=== PATIENT | female | born 1960 | race Caucasian/White ===

== ENCOUNTER 2017-12-07 10:42 | Inpatient (IN) | payer MEDICARE, OTHER ==
[~2017-12-07] VITALS: Ht 170.2 cm; Wt 88.9 kg
[2017-12-07] VITALS (20 sets, daily range): BP systolic 87–125; BP diastolic 45–75
[~2017-12-07 10:42] MED LIST: ALBU8.5H8 INH; BISA-155 PO; BUPR1FIL3 SL; CYAN250010 PO; DOCU250C4 PO; ESTROBLEND PO; GABA300C PO; HYDR25TA4 PO; NIA500ERT PO; POLY17PO10 PO; POTA10TA15 PO; acetaminophen 325mg tablet PO ONE; albuterol 2.5 MG/3 ML nebule NEB ONE; ceFAZolin 2gm in dextrose, iso 100 ML IV ONE; celeCOXIB 100mg capsule PO ONE; famotidine 20mg tablet PO ONE; gabapentin 300mg capsule PO ONE; oxyCODONE SR 10mg (sust. release) tab PO ONE; ringers solution, lacted 1,000 ML IV SCH; tranexamic acid inj. 1,000 MG in normal saline 100ml IV soln 90 ML IV ONE
[2017-12-07] MEDS ORDERED: bacitracin inj 150,000 UNIT in sodium chloride irrig. sol 3,000 ML IR ONE (12:15)
[2017-12-07] MEDS ORDERED: ROPIVAcaine 0.5% (5mg/ml) 30ml vial ONE (12:54)
[2017-12-07] MEDS ORDERED: MIDAZolam 1mg/ml 10ml vial ONE (13:16)
[2017-12-07] MEDS ORDERED: fentaNYL/PF 50MCG/1 ML 2ML syringe ONE (13:16)
[2017-12-07] MEDS ORDERED: MORPHINE SULFATE/PF 0.5 MG/ML 10ML AMPUL ONE (13:16)
[2017-12-07] MEDS ORDERED: ringers solution, lacted 1,000 ML IV SCH (14:06)
[2017-12-07] MEDS ORDERED: NALOXONE IV PRN (14:07)
[2017-12-07] MEDS ORDERED: NORMAL SALINE IV PRN (14:07)
[2017-12-07] MEDS ORDERED: diphenhydrAMINE 50 mg/ml inj IV PRN (14:10)
[2017-12-07] MEDS ORDERED: proCHLORperazine 10 MG/2 ml inj IV PRN (14:10)
[2017-12-07] MEDS ORDERED: ondansetron/PF 4mg/2ml inj IV PRN ×3 (14:10→15:20)
[2017-12-07] MEDS ORDERED: meperidine/PF 25mg/ml syringe IV PRN ×3 (14:10)
[2017-12-07] MEDS ORDERED: ceFAZolin 1000mg inj ONE (14:53)
[2017-12-07] MEDS ORDERED: non-formulary drug (Albuterol Sulfate (Proair Hfa) 2 PUFFS) INH SCH (15:15)
[2017-12-07] MEDS ORDERED: propofol inj 20 ML IV ONE (15:18)
[2017-12-07] MEDS ORDERED: bisacodyl 10mg suppository rectal RC PRN (15:20)
[2017-12-07] MEDS ORDERED: magnesium hydroxide 30ml (MOM) UD suspension PO PRN (15:20)
[2017-12-07] MEDS ORDERED: oxyCODONE IR 5mg (immed. release) tablet PO PRN (15:20)
[2017-12-07] MEDS ORDERED: diphenhydrAMINE 25mg capsule PO PRN ×2 (15:20)
[2017-12-07] MEDS ORDERED: acetaminophen 325mg tablet PO PRN (15:20)
[2017-12-07] MEDS ORDERED: albuterol 2.5 MG/3 ML nebule NEB PRN (15:25)
[2017-12-07] MEDS: cefazolin 1gm/NS 100mL 100 ML IV SCH (18:26)
[2017-12-07] MEDS: potassium cl 20mEq in 1/2 NS 1,000 ML IV SCH (18:35)
[2017-12-07] MEDS: oxyCODONE IR 5mg (immed. release) tablet PO PRN ×2 (18:35→22:42)
[2017-12-07] MEDS: gabapentin 300mg capsule PO SCH (18:35)
[2017-12-07] MEDS: buprenorphine/naloxone 8MG-2MG SUBlingual film SL SCH (20:35)
[2017-12-07] MEDS: sennosides 8.6mg tablet PO SCH (20:35)
[2017-12-07] MEDS: HYDROmorphone 1 mg/ml syringe IV PRN (20:35)
[2017-12-07] MEDS: acetaminophen 325mg tablet PO SCH (20:36)
[2017-12-07] MEDS: celeCOXIB 100mg capsule PO SCH (20:36)
[2017-12-07] MEDS: ascorbic acid 500mg tablet PO SCH (20:36)
[2017-12-07] MEDS ORDERED: non-formulary drug (Buprenorphine Hcl/Naloxone Hcl (Suboxone 8 Mg-2 Mg Sl Film) 1 STRIP) SL SCH (21:00)
[2017-12-08] MEDS: gabapentin 300mg capsule PO SCH ×3 (00:21→15:54)
[2017-12-08] MEDS: cefazolin 1gm/NS 100mL 100 ML IV SCH (00:21)
[2017-12-08] MEDS: HYDROmorphone 1 mg/ml syringe IV PRN ×6 (00:23→22:26)
[2017-12-08] MEDS: potassium cl 20mEq in 1/2 NS 1,000 ML IV SCH ×4 (00:31→23:16)
[2017-12-08 02:00] VITALS: BP 109/67
[2017-12-08] MEDS: acetaminophen 325mg tablet PO SCH ×4 (02:11→20:02)
[2017-12-08 06:00] VITALS: BP 110/66
[2017-12-08 06:10] LABS: BASOPHILS % (AUTO) 0.2 % (0-1); EOSINOPHILS # (AUTO) 0.2 X10'3 (0-0.9); EOSINOPHILS % (AUTO) 2.6 % (0-6); HEMATOCRIT 35.2 % (35.0-45.0); HEMOGLOBIN 12.1 g/dl (12.0-16.0); LYMPHOCYTES # (AUTO) 1.4 X10'3 (1.1-4.8); LYMPHOCYTES % (AUTO) 23.5 % (21-51); MEAN CORPUSCULAR HGB CONC 34.5 % (33.0-36.5); MEAN PLATELET VOLUME 7.2 FL (7.4-10.4); MONOCYTES # (AUTO) 0.4 X10'3 (0-0.9); MONOCYTES % (AUTO) 7.2 % (2-12); NEUTROPHILS # (AUTO) 3.9 X10'3 (1.8-7.7); NEUTROPHILS % (AUTO) 66.5 % (42-75); PLATELET COUNT 200 X10'3 (140-440); RED BLOOD COUNT 4.05 X10'6 (4.20-5.60); RED CELL DISTRIBUTION WIDTH 12.9 % (11.5-14.5); WHITE BLOOD COUNT 5.9 X10'3 (4.5-11.0)
[2017-12-08 06:19] LABS: ANION GAP 5 (8-16); CHLORIDE 106 MMOL/L (99-107); POTASSIUM 3.9 MMOL/L (3.5-5.1); SODIUM 139 MMOL/L (135-145); TOTAL CARBON DIOXIDE 27.6 MMOL/L (24-32)
[2017-12-08 06:21] LABS: PROTHROMBIN TIME 10.1 SECONDS (9.0-12.0)
[2017-12-08] MEDS: oxyCODONE IR 5mg (immed. release) tablet PO PRN ×4 (06:45→20:03)
[2017-12-08] MEDS ORDERED: non-formulary drug (Potassium Chloride 1 TAB) PO SCH (08:00)
[2017-12-08] MEDS: buprenorphine/naloxone 8MG-2MG SUBlingual film SL SCH (08:05)
[2017-12-08] MEDS: ascorbic acid 500mg tablet PO SCH ×2 (08:07→20:02)
[2017-12-08] MEDS: multivitamins, therapeutics tablet PO SCH (08:09)
[2017-12-08] MEDS: celeCOXIB 100mg capsule PO SCH ×2 (08:09→20:02)
[2017-12-08] MEDS: potassium chloride 10mEq ER tablet PO SCH (08:09)
[2017-12-08] MEDS: docusate sod 250mg capsule PO SCH (08:10)
[2017-12-08] MEDS: HYDROchlorothiazide 25mg tablet PO SCH (08:10)
[2017-12-08 10:00] VITALS: BP 107/54
[2017-12-08] MEDS ORDERED: warfarin 10mg tablet PO ONE (10:00)
[2017-12-08] MEDS: buprenorphine/naloxone 2-0.5mg sublingual tablet SL SCH ×2 (13:08→22:25)
[2017-12-08 15:00] VITALS: BP 126/70
[2017-12-08 18:00] VITALS: BP 118/64
[2017-12-08 22:00] VITALS: BP 116/57
[2017-12-08] MEDS: sennosides 8.6mg tablet PO SCH (22:26)
[2017-12-09] MEDS: gabapentin 300mg capsule PO SCH ×2 (00:17→08:25)
[2017-12-09] MEDS: oxyCODONE IR 5mg (immed. release) tablet PO PRN ×4 (00:17→13:03)
[2017-12-09 02:00] VITALS: BP 120/64
[2017-12-09] MEDS: acetaminophen 325mg tablet PO SCH ×2 (02:00→08:26)
[2017-12-09 06:28] LABS: BASOPHILS % (AUTO) 0.1 % (0-1); EOSINOPHILS # (AUTO) 0.1 X10'3 (0-0.9); EOSINOPHILS % (AUTO) 2.4 % (0-6); HEMOGLOBIN 11.6 g/dl (12.0-16.0); LYMPHOCYTES # (AUTO) 0.9 X10'3 (1.1-4.8); LYMPHOCYTES % (AUTO) 16.8 % (21-51); MEAN CORPUSCULAR HEMOGLOBIN 29.8 PG (27.0-31.0); MEAN CORPUSCULAR VOLUME 87.4 FL (78-98); MEAN PLATELET VOLUME 7.1 FL (7.4-10.4); MONOCYTES # (AUTO) 0.4 X10'3 (0-0.9); MONOCYTES % (AUTO) 8.3 % (2-12); NEUTROPHILS # (AUTO) 3.8 X10'3 (1.8-7.7); NEUTROPHILS % (AUTO) 72.4 % (42-75); PLATELET COUNT 180 X10'3 (140-440); RED BLOOD COUNT 3.89 X10'6 (4.20-5.60); WHITE BLOOD COUNT 5.3 X10'3 (4.5-11.0)
[2017-12-09 06:36] LABS: INR 1.1 INR; PROTHROMBIN TIME 11.5 SECONDS (9.0-12.0)
[2017-12-09] MEDS: potassium cl 20mEq in 1/2 NS 1,000 ML IV SCH (07:16)
[2017-12-09 07:23] VITALS: BP 116/66
[2017-12-09] MEDS: docusate sod 250mg capsule PO SCH (08:00)
[2017-12-09] MEDS: celeCOXIB 100mg capsule PO SCH (08:25)
[2017-12-09] MEDS: HYDROchlorothiazide 25mg tablet PO SCH (08:26)
[2017-12-09] MEDS: potassium chloride 10mEq ER tablet PO SCH (08:26)
[2017-12-09] MEDS: ascorbic acid 500mg tablet PO SCH (08:26)
[2017-12-09] MEDS: multivitamins, therapeutics tablet PO SCH (08:26)
[2017-12-09] MEDS: buprenorphine/naloxone 2-0.5mg sublingual tablet SL SCH ×2 (08:27→13:15)
[2017-12-09] MEDS: HYDROmorphone 1 mg/ml syringe IV PRN ×2 (08:46→13:02)
[2017-12-09] MEDS ORDERED: warfarin 10mg tablet PO ONE (10:00)
[2017-12-09] MEDS ORDERED: ASPI-1264 PO (10:29)
[2017-12-09] MEDS ORDERED: WALKERFR (10:30)
[2017-12-09 11:50] VITALS: BP 100/59
[2017-12-09] MEDS ORDERED: acetaminophen 325mg tablet PO PRN (15:20)
== END 2017-12-09 13:30 | disposition home or self-care (01) | DRG 470 ==
LOC: PAS IN 11:59 → EDSTATUS 14:00 → ORTHO 4S 16:47
PROVIDERS: ADMIT Specialist; ATTEND Specialist
PROC: 0SRB02Z Replacement of Left Hip Joint with Metal on Polyethylene Synthetic Substitute, Open Approach (ICD-10-PCS; principal; 2017-12-07 13:13)
DX: M16.12 Unilateral primary osteoarthritis, left hip (principal); E66.8 Other obesity; D62 Acute posthemorrhagic anemia; M25.752 Osteophyte, left hip; Q65.89 Other specified congenital deformities of hip; G89.29 Other chronic pain; M54.9 Dorsalgia, unspecified; F41.9 Anxiety disorder, unspecified; I10 Essential (primary) hypertension; F17.210 Nicotine dependence, cigarettes, uncomplicated; Z96.641 Presence of right artificial hip joint; Z98.1 Arthrodesis status; Z79.899 Other long term (current) drug therapy; Z98.891 History of uterine scar from previous surgery; Z68.30 Body mass index [BMI] 30.0-30.9, adult
CPT/HCPCS: 36415; 73502; 80051; 85025; 85610; 86885; 86900; 86901; 87070; 94760; 97110; 97116; 97162; 97530; A4565; A6253; A6449; A6455; A7000; C1758; C1776; J0690; J1170; J2250; J2274; J2704; J2795; J3010; J7030; J7120; Q0163